=== PATIENT | male | born 1975 | race Caucasian/White ===

== ENCOUNTER → 2024-01-27 17:32 | Outpatient (CLI) | payer OTHER, SELFPAY ==
--- NOTE | 2024-01-27 17:34 | DI.RAD.S_ITS ---
PROCEDURE: XR ANKLE LT MIN 3V INDICATIONS: Left ankle strain TECHNIQUE: 3 views of the ankle were acquired. COMPARISON: None. FINDINGS: Bones: Marked lateral malleolar soft tissue swelling. No acute fracture or dislocation. Joint spaces are well maintained. Soft tissues: No tibiotalar joint effusion. Achilles tendon appears normal. IMPRESSION: Soft tissue swelling. Dictated by: Mary Ann Monahan M.D. on 01/28/2024 at 10:23 Approved by: Mary Ann Monahan M.D. on 01/28/2024 at 10:24
== END ==
PROVIDERS: Referring Provider Nurse Practitioner Family; Visit Provider Nurse Practitioner Family
DX: S96.912A Strain of unspecified muscle and tendon at ankle and foot level, left foot, initial encounter (principal); M79.89 Other specified soft tissue disorders; X58.XXXA Exposure to other specified factors, initial encounter
CPT/HCPCS: 73610